=== PATIENT | male | born 1965 | race Caucasian/White ===

== ENCOUNTER 2018-10-01 11:28 | Emergency (ER) | payer MEDICAID ==
[~2018-10-01] VITALS: Ht 177.8 cm; Wt 113.4 kg
[2018-10-01 11:54] VITALS: BP 149/89
[2018-10-01] MEDS ORDERED: KETOROLAC TROMETH 60MG/2ML VIAL IM ONE (12:15)
== END 2018-10-01 14:37 | disposition home or self-care (01) ==
LOC: ER 11:28
DX: M25.562 Pain in left knee (principal); M25.572 Pain in left ankle and joints of left foot; X58.XXXA Exposure to other specified factors, initial encounter; Y93.89 Activity, other specified; Y92.89 Other specified places as the place of occurrence of the external cause; Y99.8 Other external cause status
CPT/HCPCS: 93005; 93971; 96372; 99284; J1885

== ENCOUNTER 2024-07-27 09:03 | Inpatient (IN) | payer MEDICAID, OTHER ==
[~2024-07-27] VITALS: Ht 177.8 cm; Wt 128.0 kg
[2024-07-27] MEDS: SODIUM CHLORIDE 0.9% 1,000 ML IV ONE (11:12)
[2024-07-27] MEDS: KETOROLAC TROMETH 30 MG/ML 1ML VIAL IV ONE (11:15)
[2024-07-27 11:32] LABS: Basophils # (auto) 0.1 10 ^3/uL (0-0.2); Basophils % (auto) 0.8 % (0.0-2.0); Eosinophils # (auto) 0.1 10 ^3/uL (0-0.8); Eosinophils % (auto) 0.9 % (0.0-7.0); Hematocrit 45.5 % (41.0-53.0); Hemoglobin 15.7 g/dL (13.5-17.5); Lymphocytes # (auto) 1.9 10 ^3/uL (0.4-5.4); Lymphocytes % (auto) 27.5 % (10.0-50.0); Mean Corpuscular Hemoglobin 33.8 pg (28.0-32.0); Mean Corpuscular Hgb Conc. 34.5 g/dL (32.0-36.0); Monocytes # (auto) 0.4 10 ^3/uL (0-1.3); Monocytes % (auto) 6.3 % (0.0-12.0); Neutrophils # (auto) 4.4 10 ^3/uL (1.6-8.6); Neutrophils % (auto) 64.5 % (37.0-80.0); Platelet Count (auto) 268 10^3/uL (140-450); Red Blood Cells 4.65 10^6/uL (4.5-5.90); Red Cell Distribution Width 13.6 % (11.8-14.3); White Blood Cell 6.8 10^3/uL (4.4-10.8)
[2024-07-27 11:40] LABS: Chloride 108 mmol/L (98-107); Potassium 4.1 mmol/L (3.5-5.1); Sodium 140 mmol/L (136-145)
[2024-07-27 11:41] LABS: Anion Gap 6 (5-15); Calcium 9.7 mg/dL (8.7-10.4); Carbon Dioxide 26 mmol/L (20-30)
[2024-07-27 11:46] LABS: BUN/Creatinine Ratio 12.3 (10.0-20.0); Blood Urea Nitrogen 15 mg/dL (9-23); Glucose 99 mg/dL (74-106)
[2024-07-27] MEDS ORDERED: ONDANSETRON HCL 4 MG/2 ML VIAL IV PRN (18:30)
[2024-07-27] MEDS ORDERED: LISI20TA56 PO (18:37)
[2024-07-27] MEDS ORDERED: hydrALAZINE HCL 20 MG/ML VL IV PRN (18:45)
[2024-07-27] MEDS: LISINOPRIL 20 MG TAB PO SCH (21:43)
[2024-07-27] MEDS: HYDROcodone-ACET 5/325MG TAB PO PRN (21:54)
[2024-07-28 01:30] VITALS: BP 147/88; PULSE 61; RESP 20; TEMP 97.5; O2SAT 94
[2024-07-28] MEDS: MORPHINE SULFATE INJ 2 MG/ml SYRG IV PRN (01:59)
[2024-07-28 05:00] VITALS: BP 125/77; PULSE 67; RESP 20; TEMP 97.6; O2SAT 96
[2024-07-28 06:55] LABS: Basophils # (auto) 0 10 ^3/uL (0-0.2); Basophils % (auto) 0.7 % (0.0-2.0); Eosinophils # (auto) 0.2 10 ^3/uL (0-0.8); Eosinophils % (auto) 2.7 % (0.0-7.0); Hematocrit 41.8 % (41.0-53.0); Hemoglobin 14.5 g/dL (13.5-17.5); Lymphocytes # (auto) 2.9 10 ^3/uL (0.4-5.4); Lymphocytes % (auto) 42.7 % (10.0-50.0); Mean Corpuscular Hgb Conc. 34.7 g/dL (32.0-36.0); Mean Corpuscular Volume 97.9 fL (80.0-100.0); Monocytes # (auto) 0.7 10 ^3/uL (0-1.3); Monocytes % (auto) 10.5 % (0.0-12.0); Neutrophils % (auto) 43.4 % (37.0-80.0); Nucleated Red Blood Cells % 0.2 %; Platelet Count (auto) 222 10^3/uL (140-450); Red Blood Cells 4.27 10^6/uL (4.5-5.90); Red Cell Distribution Width 13.9 % (11.8-14.3); White Blood Cell 6.9 10^3/uL (4.4-10.8)
[2024-07-28 07:08] LABS: Anion Gap 4 (5-15); Carbon Dioxide 25 mmol/L (20-30); Chloride 109 mmol/L (98-107); Potassium 3.9 mmol/L (3.5-5.1); Sodium 138 mmol/L (136-145)
[2024-07-28 07:09] LABS: Calcium 9.1 mg/dL (8.7-10.4)
[2024-07-28 07:14] LABS: BUN/Creatinine Ratio 11.2 (10.0-20.0); Blood Urea Nitrogen 13 mg/dL (9-23); Glucose 93 mg/dL (74-106)
[2024-07-28 09:00] VITALS: BP 154/97; PULSE 68; RESP 16; TEMP 97.9; O2SAT 97
[2024-07-28] MEDS ORDERED: LISINOPRIL 20 MG TAB PO SCH (10:00)
[2024-07-28 12:48] VITALS: BP 141/81; PULSE 73; RESP 17; TEMP 97.8; O2SAT 96
[2024-07-28 17:00] VITALS: BP 137/70; PULSE 70; RESP 16; TEMP 97.5; O2SAT 97
== END 2024-07-28 17:50 | disposition home or self-care (01) | DRG 552 ==
LOC: ER 09:03 → OVERFLOW 18:20 → EAST 18:20
PROVIDERS: ADMIT Registered Nurse General Practice; ATTEND Internal Medicine
DX: M51.16 Intervertebral disc disorders with radiculopathy, lumbar region (principal); M48.54XA Collapsed vertebra, not elsewhere classified, thoracic region, initial encounter for fracture; I16.0 Hypertensive urgency; M51.34 Other intervertebral disc degeneration, thoracic region
CPT/HCPCS: 36415; 72148; 80048; 82607; 85025; G0378; J1885